=== PATIENT | female | born 1985 | race Two or more races ===

== ENCOUNTER → 2018-11-02 | Outpatient (CLI) | payer OTHER | END | disposition home or self-care (01) | LOC: SONOGRAMA 11:14 | DX: D25.9 Leiomyoma of uterus, unspecified (principal); Z34.81 Encounter for supervision of other normal pregnancy, first trimester ==

== ENCOUNTER 2019-04-02 15:40 | Outpatient (CLI) | payer OTHER | END 2019-04-02 17:23 | disposition home or self-care (01) | LOC: NST 15:40 | DX: Z34.83 Encounter for supervision of other normal pregnancy, third trimester (principal) ==

== ENCOUNTER → 2019-04-14 | Outpatient (CLI) | payer OTHER | END | disposition home or self-care (01) | LOC: NST 14:42 | DX: Z34.83 Encounter for supervision of other normal pregnancy, third trimester (principal) ==

== ENCOUNTER 2019-04-22 14:30 | Inpatient (IN) | payer OTHER ==
[~2019-04-22] VITALS: Ht 162.6 cm; Wt 96.6 kg
[2019-05-02] MEDS ORDERED: CETIRIZINE HCL10 MG PO (08:23)
[2019-05-02] MEDS ORDERED: OBSTETRIX DHA1 EACH PO (08:23)
== END 2019-05-03 11:46 | disposition home or self-care (01) | DRG 806 ==
LOC: O/R 14:30 → OB/GYN 05-01 06:11 → LDR 05-01 06:11 → OB/GYN 05-01 12:42 → O/R 05-12 14:30
PROVIDERS: ADMIT Obstetrics & Gynecology
PROC: 10E0XZZ Delivery of Products of Conception, External Approach (ICD-10-PCS; principal; 2019-05-01)
PROC: 0KQM0ZZ Repair Perineum Muscle, Open Approach (ICD-10-PCS; 2019-05-01)
PROC: 3E033VJ Introduction of Other Hormone into Peripheral Vein, Percutaneous Approach (ICD-10-PCS; 2019-05-01)
PROC: 4A1HXCZ Monitoring of Products of Conception, Cardiac Rate, External Approach (ICD-10-PCS; 2019-05-01)
DX: O70.1 Second degree perineal laceration during delivery (principal); O71.5 Other obstetric injury to pelvic organs; Z37.0 Single live birth; Z3A.38 38 weeks gestation of pregnancy; Z22.330 Carrier of Group B streptococcus

== ENCOUNTER 2021-04-16 15:14 | Outpatient (CLI) | payer OTHER ==
[~2021-04-16 15:14] MED LIST: CETIRIZINE HCL10 MG PO; OBSTETRIX DHA1 EACH PO
== END 2021-04-16 16:00 | disposition home or self-care (01) ==
LOC: NST 15:14
PROVIDERS: ATTEND Obstetrics & Gynecology
DX: Z34.82 Encounter for supervision of other normal pregnancy, second trimester (principal)

== ENCOUNTER → 2021-06-30 | Outpatient (CLI) | payer OTHER | END | disposition home or self-care (01) | LOC: NST 20:04 | PROVIDERS: ATTEND Obstetrics & Gynecology | DX: Z34.83 Encounter for supervision of other normal pregnancy, third trimester (principal) ==

== ENCOUNTER 2021-07-26 08:08 | Inpatient (IN) | payer OTHER ==
[~2021-07-26] VITALS: Ht 162.6 cm; Wt 104.3 kg
== END 2021-07-28 12:15 | disposition home or self-care (01) | DRG 807 ==
LOC: LDR 08:08 → OB/GYN 08:08
PROVIDERS: ADMIT Obstetrics & Gynecology; ATTEND Obstetrics & Gynecology
PROC: 10E0XZZ Delivery of Products of Conception, External Approach (ICD-10-PCS; principal; 2021-07-26)
PROC: 0KQM0ZZ Repair Perineum Muscle, Open Approach (ICD-10-PCS; 2021-07-26)
PROC: 4A1HXFZ Monitoring of Products of Conception, Cardiac Rhythm, External Approach (ICD-10-PCS; 2021-07-26)
DX: O70.1 Second degree perineal laceration during delivery (principal); Z37.0 Single live birth; O42.02 Full-term premature rupture of membranes, onset of labor within 24 hours of rupture; O99.824 Streptococcus B carrier state complicating childbirth; Z3A.37 37 weeks gestation of pregnancy

== ENCOUNTER 2023-03-06 12:51 | Inpatient (IN) | payer OTHER ==
[~2023-03-06] VITALS: Ht 162.6 cm; Wt 88.0 kg
== END 2023-03-09 09:55 | disposition home or self-care (01) | DRG 798 ==
LOC: EDSTATUS 03-08 07:44 → LDR 03-08 07:45 → O/R 03-08 07:45 → CIR.AMB 03-08 12:51 → OB/GYN 03-08 14:45
PROVIDERS: ADMIT Obstetrics & Gynecology; ATTEND Obstetrics & Gynecology
PROC: 10D17ZZ Extraction of Products of Conception, Retained, Via Natural or Artificial Opening (ICD-10-PCS; 2023-03-08)
PROC: 3E033VJ Introduction of Other Hormone into Peripheral Vein, Percutaneous Approach (ICD-10-PCS; 2023-03-08)
PROC: 3E0P7VZ Introduction of Hormone into Female Reproductive, Via Natural or Artificial Opening (ICD-10-PCS; 2023-03-08)
PROC: 10E0XZZ Delivery of Products of Conception, External Approach (ICD-10-PCS; principal; 2023-03-08 11:00)
DX: O02.1 Missed abortion (principal); Z37.1 Single stillbirth; O73.0 Retained placenta without hemorrhage; Z3A.13 13 weeks gestation of pregnancy; Z20.822 Contact with and (suspected) exposure to COVID-19